=== PATIENT | male | born 1975 | race Two or more races ===

== ENCOUNTER 2017-10-26 04:04 | Emergency (ER) | payer SELFPAY ==
[2017-10-26 04:22] VITALS: BP 141/90; PULSE 90; RESP 20; TEMP 98.6; O2SAT 96
--- NOTE | 2017-10-26 06:02 | C.PDOC ---
History Of Present Illness 42 year old male brought in by EMS after he was found sleeping on the street. Patient admits to ETOH use tonight. In the ER patient is stating he does not want to be here and is asking for water. He offers no complaints at this time. Time Seen by Provider: 10/26/17 04:22 Chief Complaint (Nursing): Substance Abuse History Per: Patient, EMS History/Exam Limitations: no limitations Onset/Duration Of Symptoms: Hrs Current Symptoms Are (Timing): Gone Suicide/Self Injury Attempted (Context): None Modifying Factor(s): Alcohol Involuntary Hold By: None Recent travel outside of the [place]: No Past Medical History Reviewed: Historical Data, Nursing Documentation, Vital Signs Vital Signs: Last Vital Signs Temp 98.6 F 10/26/17 04:14 Pulse 90 10/26/17 04:14 Resp 20 10/26/17 04:14 BP 141/90 10/26/17 04:14 Pulse Ox 96 10/26/17 06:04 Family History: States: Unknown Family Hx - Social History Hx Alcohol Use: Yes Hx Substance Use: No - Immunization History Hx Tetanus Toxoid Vaccination: No Hx Influenza Vaccination: No Hx Pneumococcal Vaccination: No Review Of Systems Constitutional: Negative for: Fever, Chills Cardiovascular: Negative for: Chest Pain, Palpitations Respiratory: Negative for: Cough, Shortness of Breath Gastrointestinal: Negative for: Nausea, Vomiting Physical Exam - Physical Exam Appears: Well, Non-toxic, Other (ETOH on breath, slurred speech) Skin: Normal Color, Warm, Dry Head: Atraumatic, Normacephalic Eye(s): bilateral: Normal Inspection Oral Mucosa: Moist Neck: Normal, Supple Chest: Symmetrical, No Tenderness Cardiovascular: Rhythm Regular Respiratory: Normal Breath Sounds, No Rales, No Rhonchi, No Wheezing Gastrointestinal/Abdominal: Soft, No Tenderness Neurological/Psych: Oriented x3, Normal Speech Gait: Unsteady ED Course And Treatment O2 Sat by Pulse Oximetry: 96 (Room air) Pulse Ox Interpretation: Normal Progress Note: Accucheck done. Patient pending sobriety. On reassessment, pt is alert awake, ambulatory in ED asking for water. Pt is stable for discharge Disposition - Disposition Disposition: HOME/ ROUTINE Disposition Time: 06:49 Condition: STABLE Instructions: Alcohol Abuse and Alcoholism (DC) Forms: [employer] (Macedonian) Print Language: WOLOF - Clinical Impression Clinical Impression: Alcohol abuse - PA / GARAGE HELPER / Resident Statement MD/DO has reviewed & agrees with the documentation as recorded. - Scribe Statement The provider has reviewed the documentation as recorded by the Scribsteve Davis All medical record entries made by the Michelleibsteve were at my direction and personally dictated by me. I have reviewed the chart and agree that the record accurately reflects my personal performance of the history, physical exam, medical decision making, and the department course for this patient. I have also personally directed, reviewed, and agree with the discharge instructions and disposition.
== END 2017-10-26 06:53 | disposition home or self-care (01) ==
LOC: C.ER 04:04
DX: F10.10 Alcohol abuse, uncomplicated (principal)